=== PATIENT | female | born 1980 | race Caucasian/White ===

== ENCOUNTER 2023-09-07 07:55 | Outpatient (CLI) | payer BC | END 2023-09-07 07:56 | disposition home or self-care (01) | LOC: CSHMAMMO 07:55 | PROVIDERS: ATTEND Family Medicine | DX: Z12.31 Encounter for screening mammogram for malignant neoplasm of breast (principal); Z91.89 Other specified personal risk factors, not elsewhere classified | CPT/HCPCS: 77063; 77067 ==